=== PATIENT | male | born 1940 | race Caucasian/White ===

== ENCOUNTER 2018-09-10 06:45 | Day surgery (SDC) | payer MEDICARE, SELFPAY ==
[2018-09-10] VITALS (7 sets, daily range): BP systolic 95–120; BP diastolic 61–84; PULSE 60–84; RESP 14–16; TEMP 36.6–36.7; O2SAT 93–98; BMI 27.3
--- NOTE | 2018-09-10 07:00 | RAD_ITS ---
STUDY: X-RAY - LEFT FOOT CLINICAL: Male, 78 years old. Intraoperative injection at the first metatarsophalangeal joint. TECHNIQUE: 1 coned-down view(s) of the foot. COMPARISON: None. FINDINGS: Intraoperative fluoroscopic services provided for intra-articular injection at the first metatarsophalangeal joint. RAD/Fluoro Guided Needle Placement IMPRESSION: Intraoperative fluoroscopic services provided for intra-articular injection at the first metatarsal phalangeal joint. Electronically Signed: Daniel Elise MD at 9:49 EST Tel [phone], Service support ,
[2018-09-10] MEDS: Bupivacaine 0.5% PF 10 ML VIAL (08:12)
[2018-09-10] MEDS: Triamcinolone Acetonide 40 MG/ML Vial (08:12)
--- NOTE | 2018-09-10 08:23 | PCM.IMDPSTOP ---
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
--- NOTE | 2018-09-10 08:25 | DCINST_ITS ---
Discharge Activity: Return to Normal Activity Allergies/Adverse Reactions: Allergies morphine Allergy (Verified 09/05/18 15:24) Other CAUSES LOW BP IV CONTRAST DYE Allergy (Uncoded 09/05/18 15:24) Rash Medications to take at Discharge Aspirin E.C. [Ecotrin] 81 mg PO DAILY@0800 10/17/17 Atorvastatin Calcium [Lipitor] 40 mg PO QHS 10/17/17 Calcium Carbonate/Vitamin D3 [Calcium 250-Vit D3 125 Tablet] 1 each PO DAILY 10/17/17 Cholecalciferol (Vitamin D3) [Vitamin D3] 800 unit PO DAILY 10/17/17 Fenofibrate [Tricor] 216 mg PO DAILY 10/17/17 Fish Oil/Dha/Epa [Fish Oil 1,200 mg Fish Oil] 1 each PO BID 10/17/17 Metoprolol Succinate 25 mg PO BID 10/17/17 Multivitamin [Daily Multiple Vitamin] 1 each PO DAILY 10/17/17 Nitroglycerin [Nitrostat] 0.4 mg SUBLINGUAL Q5M PRN 10/17/17 Omeprazole 40 mg PO BID 10/17/17 Tamsulosin HCl [Flomax] 0.4 mg PO DAILY 10/17/17 Ubidecarenone/Vitamin E Mixed [Poz71-Wxe E 100 mg-10 Unit Sfg] 1 each PO DAILY 10/17/17 Psyllium Husk (with Sugar) [Metamucil Packet] 3.4 gm PO DAILY 09/05/18 Sildenafil Citrate [Viagra] 100 mg PO PRN PRN 09/05/18 Primary Care Physician: Michael Kelley MD [Primary Care Provider] - Test Results: Test results from this visit will be discussed in further detail at your follow- up appointment, if applicable.
--- NOTE | 2018-09-10 08:30 | OP.PCM_ITS ---
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 He has severe narrowing of left 1st mtp with lessn than 5 degrees of avaiable motion of left 1st mtp. He has pain with rom of left 1st mtpj. He presented to my office last week requesting an injection as he had this performed last year and this was found to be very successful. He is interested in another injection. I discussed risks of injection not limited to joint infection, tendon rupture, cartilage injury, ligament injury, bleeding, bruising, failure to resolve pain. patient informed that if injection fails to eliminate pain, surgical options, most notably fusion would be next option. patient consents to proceed with xray guided injection of left foot. patient was transferred to operating room and placed on operating room table in supine position. he was placed under mac anesthesia. the left foot was prepped and draped in the usual aseptic technique. timeout was performed making note of procedure and personal involved. using intra-op xray, the left 1st mtpj was identified. a sterile injection consisting of 0.5 cc of dexamethazone, 0.5 cc of kenalog and 0.5 cc of marcaine plain was injected to left foot. patient tolerated injection. a band aid was then applied. patient was transferred to pacu in stable condition.
== END 2018-09-10 09:18 | disposition home or self-care (01) ==
LOC: SDC 06:46 → AC 06:47
PROVIDERS: Family Provider Family Medicine; PCP Family Medicine; Referring Provider Podiatrist Foot & Ankle Surgery; Visit Provider Podiatrist Foot & Ankle Surgery
PROC: (CPT 20605; principal; 2018-09-10 08:20)
DX: M20.5X2 Other deformities of toe(s) (acquired), left foot (principal); M19.90 Unspecified osteoarthritis, unspecified site; I10 Essential (primary) hypertension; N40.0 Benign prostatic hyperplasia without lower urinary tract symptoms; M26.629 Arthralgia of temporomandibular joint, unspecified side; G44.209 Tension-type headache, unspecified, not intractable; E78.2 Mixed hyperlipidemia; K22.70 Barrett's esophagus without dysplasia; I25.119 Atherosclerotic heart disease of native coronary artery with unspecified angina pectoris; Z87.891 Personal history of nicotine dependence
CPT/HCPCS: 20604; 76000; 77002; J7120

== ENCOUNTER → 2018-11-07 09:44 | Outpatient (CLI) | payer MEDICARE, SELFPAY ==
[2018-09-10 07:11] VITALS: BMI 27.3
--- NOTE | 2018-11-07 10:45 | MRI_ITS ---
STUDY: MRI BRAIN WITHOUT CONTRAST REASON FOR EXAM: Male, 78 years old. Vertigo. Headache. History of renal carcinoma. Family history of glioblastoma. TECHNIQUE: Standardized multiplanar fat and water weighted pulse sequences were obtained. COMPARISON: None. FINDINGS: No restricted diffusion to suspect acute or subacute ischemic infarct. Normal size of the ventricles and extra-axial spaces for the patient's age. Subcortical white matter and posterior periatrial white matter T2 FLAIR hyperintensity foci in both cerebral hemispheres are chronic white matter ischemic changes. Normal bilateral basal ganglia. Normal thalami. There is no extra-axial fluid accumulation. Normal flow voids within the major intracranial circulation suggesting patency by spin echo criteria. Normal sella turcica, pituitary gland, infundibular stalk, optic chiasm and hypothalamus. Normal tectal plate and pineal gland. Normal midbrain, ruperto and medulla. Normal cerebellum. Normal basal cisterns. Normal bilateral temporal bones. Normal bilateral internal auditory canals. No demonstrated orbital abnormality, within the constraints of a routine brain study. Mucosal thickening and a markedly contracted right maxillary sinus due to chronic sinusitis. Normal calvarium and skull base. Normal visualized soft tissue structures. Normal visualized upper cervical spine. MRI/Brain without Contrast IMPRESSION: 1. No MRI evidence of acute or subacute ischemic infarct or intracranial mass. 2. Chronic white matter ischemic changes in both cerebral hemispheres. 3. Mucosal thickening in a contracted right maxillary sinus due to chronic sinusitis. Electronically Signed: Subhash Harmon MD at 8:49 EST , Service support ,
== END ==
PROVIDERS: Family Provider Family Medicine; PCP Family Medicine; Referring Provider Family Medicine; Visit Provider Family Medicine
DX: R42 Dizziness and giddiness (principal); R51 Headache; Z80.8 Family history of malignant neoplasm of other organs or systems; C64.9 Malignant neoplasm of unspecified kidney, except renal pelvis
CPT/HCPCS: 70551

== ENCOUNTER 2022-12-02 09:48 | Inpatient (IN) | payer MEDICARE, SELFPAY ==
[2022-12-02 09:50] VITALS: BP 118/81; PULSE 125; RESP 18; TEMP 36.1; O2SAT 98; BMI 24.4
--- NOTE | 2022-12-02 10:24 | EKG12_ITS ---
Test Reason : Blood Pressure : / mmHG Vent. Rate : 098 BPM Atrial Rate : 098 BPM P-R Int : 220 ms QRS Dur : 090 ms QT Int : 360 ms P-R-T Axes : 023 -12 002 degrees QTc Int : 459 ms Sinus rhythm with 1st degree A-V block Incomplete right bundle branch block Possible Lateral infarct , age undetermined Inferior infarct , age undetermined Abnormal ECG Confirmed by AILEEN ART, HENRRY ([id number]), development editor AYDEE MONTELONGO ([id number]) on 12/05/2022 9:08:54 AM Referred By: Confirmed By:HENRRY GALLAGHER MD
--- NOTE | 2022-12-02 10:25 | RAD_ITS ---
INDICATION: CAD EXAMINATION/TECHNIQUE: X-RAY - XR Chest 1 View COMPARISON: None. FINDINGS: LINES/DEVICES: None. LUNGS: Suboptimal inspiratory effort. No consolidation, edema or effusion. No pneumothorax. MEDIASTINUM AND CARDIOVASCULAR STRUCTURES: Cardiac silhouette not enlarged. Central airways and mediastinal contour are unremarkable. BONES AND SOFT TISSUES: Status post reverse arthroplasty left shoulder. RAD/Chest 1 View (Portable) IMPRESSION: Suboptimal inspiratory effort. Status post reverse arthroplasty left shoulder. Electronically Signed: Javed Salvador MD, CHACHA at 11:23 EST ,
--- NOTE | 2022-12-02 10:26 | EDS_ITS ---
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 He had his th round of radiation therapy on Sunday, 4 days ago. He is due for his last round of chemotherapy on Sunday. He sees Dr. Smith with the [facility], presents with generalized weakness, nausea and vomiting. He states he had a bad night last evening, his worst night with diffuse chest pain, and pain in his epigastrium. Over the last few days he has vomited 3 times without any blood whit in his emesis. He may have had looser stool. No fevers or chills. He is states that he is not a surgical candidate, hence he is going through the radiation therapy along with the chemotherapy. He denies any nausea currently. No chest pain. PFSH PFSH Home Medications aspirin 81 mg tablet,delayed release 81 mg PO DAILY@0800 10/17/17 [History Last Taken Unknown] atorvastatin 40 mg tablet 40 mg PO QHS 10/17/17 [History Last Taken Unknown] calcium carbonate 250 mg-vitamin D3 3.125 mcg (125 unit) tablet 1 ea PO DAILY 10/17/17 [History Last Taken Unknown] cholecalciferol (vitamin D3) 125 mcg (5,000 unit) capsule 800 unit PO DAILY 10/17/17 [History Last Taken Unknown] coenzyme Q10 100 mg-vitamin E 10 unit capsule 1 ea PO DAILY 10/17/17 [History Last Taken Unknown] fenofibrate nanocrystallized 145 mg tablet 216 mg PO DAILY 10/17/17 [History Last Taken Unknown] fish oil-dha-epa 1,200 mg-144 mg-216 mg capsule 1 ea PO BID 10/17/17 [History Last Taken Unknown] metoprolol succinate 25 mg tablet,extended release 24 hr 25 mg PO BID 10/17/17 [History Last Taken 09/10/18 05:45 25 MG] multivitamin (Daily Multiple tablet) 1 ea PO DAILY 10/17/17 [History Last Taken Unknown] nitroglycerin 0.4 mg sublingual tablet 0.4 mg sublingual Q5M PRN Chest Pain 10/17/17 [History Last Taken Unknown] omeprazole 40 mg capsule,delayed release 40 mg PO BID 10/17/17 [History Last Taken 09/10/18 05:45 40 MG] tamsulosin 0.4 mg capsule 0.4 mg PO DAILY 10/17/17 [History Last Taken Unknown] psyllium husk (with sugar) 3.4 gram oral powder packet (Metamucil (with sugar)) 3.4 g PO DAILY 09/05/18 [History Last Taken Unknown] sildenafil 100 mg tablet (Viagra) 100 mg PO PRN PRN ED 09/05/18 [History Last Taken Unknown] Allergy/AdvReac Type Severity Reaction Status Date / Time Iodinated Contrast Media Allergy Rash Verified 12/02/22 10:34 [contrast dye - iodinated] morphine Allergy Other Verified 12/02/22 09:54 Social History Smoking Status: Former smoker ROS ROS ED ROS Narrative Constitutional: No fever, no chills. Generalized weakness. HEENT: No sore throat. No neck pain. No loss of vision. No rhinorrhea. Cardiovascular: Positive chest pain-resolved. No palpitations. No pedal edema. Respiratory: No cough, no shortness of breath. Abdominal: Epigastric to diffuse abdominal pain. 3 episodes of nausea and vomiting, nonbloody, over the last few days. Genitourinary: No dysuria. No hematuria. Musculoskeletal: No myalgias. No arthralgias. Neurologic: No headaches. No dizziness. No lightheadedness. Skin: No rash. No change in color. Psychiatric: No depression. No anxiety. EXAM Physical Exam Narrative Exam Narrative: Afebrile. Vital signs noted. HEENT: Normocephalic. Atraumatic. PERRL, EOMI. Neck soft and supple. No point tenderness or step off. Cardiovascular: Tachycardia. No murmurs, rubs, or gallops appreciated. Respiratory: No tachypnea. Lungs clear to auscultation bilaterally. Gastrointestinal: Abdomen soft, minimal epigastric tenderness. With normoactive bowel sounds. No rebound or guarding. Neurological: Awake. Alert. Nonfocal, nonlateralizing. Skin: No rash. Normal color. No pallor. Musculoskeletal: No pedal edema. Full range of motion extremities. Const Vital Signs: 12/02/22 09:50 12/02/22 13:37 Temperature 97.0 F L 98 F Temperature Source Temporal Temporal Pulse Rate 125 H 109 H Respiratory Rate 18 20 H Blood Pressure 118/81 H 120/73 Blood Pressure Mean 93 88 Pulse Ox 98 99 Oxygen Delivery Method Room Air Room Air MDM MDM MDM Narrative Medical decision making narrative: Main concern is for dehydration. Patient will be bolused normal saline 1 L intravenously. He declines any antinausea medication currently. He will be given fentanyl for palliation. Comprehensive work-up was pursued. Patient's concern was that last night with his chest pain I thought I was having a heart attack. I will obtain an EKG and troponin to check out his cardiac status and see if he has had NSTEMI. Regarding his nausea and vomiting and abdominal pain, I do feel that it may be secondary to his esophageal carcinoma and recent radiation. Patient complains of large amount of phlegm being produced that he spits up. I reviewed the patient's laboratory work. He is neutropenic at 1.5 with a hemoglobin of 12.5 and hematocrit 36.9. Platelet count normal at 173. He is mildly dehydrated with a sodium of 132, potassium 3.2, BUN normal at 15 and creatinine 1.0 however. LFTs show alk phos slightly elevated at 42, high- sensitivity troponin is 15. This is a greater than 6-hour troponin so in regards to his chest pain I do not feel that he is having an acute coronary syndrome, non-STEMI. I interpreted his EKG as normal sinus rhythm at 98 bpm without ectopy or acute ST changes. No STEMI. No significant change from 2021 in regards to acute ST changes. Chest x-ray interpreted by myself shows no evidence of an acute pneumonia or pneumothorax. I reviewed the radiology report which confirms my interpretation. CT of the abdomen and pelvis without contrast because he has an allergy, shows no evidence of an obstruction in review of the radiology report, there is cholelithiasis. I do not feel that he has acute cholecystitis. I discussed patient with Dr. Smith who called in regarding the patient. If the patient were to be discharged, he wanted him on oral liquid oxycodone. However, family and patient are concerned because he has been unable to tolerate any p.o. fluids. He was given a p.o. challenge of his oral potassium. He vomited immediately according to the RN. Given his inability to take oral medications or oral fluids, I discussed the patient with Dr. Tomasz Joyce for assignment to observation on the medical surgical floor. Patient is in stable condition. Lab Data Attestation: I reviewed the patient's lab results. Labs: Laboratory Results - last 24 hr 12/02/22 12/02/22 12/02/22 10:09 10:09 12:03 WBC 1.5 L RBC 3.95 L Hgb 12.5 L Hct 36.9 L MCV 93.4 MCH 31.6 MCHC 33.9 RDW Std Deviation 52.7 H RDW Coeff of Terry 15.7 H Plt Count 173 MPV 10.5 Immature Gran % (Auto) 1.400 H Neut % (Auto) 70.2 H Lymph % (Auto) 10.8 L [place] % (Auto) 14.2 H Eos % (Auto) 2.0 Baso % (Auto) 1.4 H Absolute Neuts (auto) 1.0 L Absolute Lymphs (auto) 0.16 L Nucleated RBC % 0 Diff Path Review May foll Platelet Estimate ADEQUATE Anisocytosis 1+ Sodium 132 L Potassium 3.2 L Chloride 99 Carbon Dioxide 22.0 Anion Gap 11 BUN 15 Creatinine 1.01 Estim Creat Clear Calc 54.44 Est GFR (MDRD) Af Amer 90 Est GFR (MDRD) Non-Af 75 BUN/Creatinine Ratio 14.9 Glucose 120 H Calcium 8.8 Total Bilirubin 0.70 AST 25 ALT 24 Alkaline Phosphatase 42 L Troponin I High Sens 15 Total Protein 6.7 Albumin 3.3 Globulin 3.4 Albumin/Globulin Ratio 1.0 Lipase 101 Urine Color Yellow Urine Clarity Clear Urine pH 6.5 Ur Specific [place] 1.010 Urine Protein Negative Urine Glucose (UA) Normal Urine Ketones Negative Urine Occult Blood Negative Urine Nitrite Negative Urine Bilirubin Negative Urine Urobilinogen Normal Ur Leukocyte Esterase Negative Urine RBC 0 SEEN Urine WBC 0 SEEN Ur Squamous Epith Cells 0 SEEN Urine Bacteria 0 SEEN Urine Mucus 0 SEEN Radiography Diagnostic Testing: Clinical Impression(s) from Imaging Studies Chest X-Ray 12/02/22 10:25 IMPRESSION: Suboptimal inspiratory effort. Status post reverse arthroplasty left shoulder. Electronically Signed: Javed Salvador MD, CHACHA at 11:23 EST Reading Location ID and State: [facility] / [place] Tel , Service support , Abdomen/Pelvis CT 12/02/22 10:35 IMPRESSION: Cholelithiasis. Simple cyst lateral midpole right kidney 2.3 cm. Sigmoid diverticulosis. Moderate sized hiatal hernia. Enlarged prostate. Electronically Signed: Javed Salvador MD, CHACHA at 11:50 EST , Discharge Plan Dx/Rx/DC Orders Clinical Impression: Esophageal carcinoma, Hypokalemia, Intractable vomiting, Neutropenia Disposition Disposition: Acute Care [facility]
--- NOTE | 2022-12-02 10:35 | CT_ITS ---
INDICATION: Pain EXAMINATION: CT ABDOMEN AND PELVIS WITHOUT CONTRAST - CT Abdomen And Pelvis W/O Contrast Injection TECHNIQUE: Helically acquired images were obtained of the abdomen and pelvis without oral or IV contrast. A radiation dose optimization technique was used for this scan. IV Contrast dosage and agent: None. Oral contrast: None. COMPARISON: None. FINDINGS: LOWER CHEST: Lung bases are clear. No cardiomegaly or pericardial effusion. LIVER: Homogeneous. No focal mass. GALLBLADDER AND BILIARY TREE: Cholelithiasis. No gallbladder distension or wall edema. No intra- or extrahepatic biliary ductal dilation. PANCREAS: No focal cystic or solid mass. SPLEEN: Normal size without focal cystic or solid mass. ADRENAL GLANDS: No nodules. KIDNEYS AND URETERS: Normal renal size and position. No hydronephrosis. Simple cyst lateral midpole right kidney 2.3 cm. PERITONEUM: No ascites or free air. No other fluid collection. BOWEL: No evidence of acute appendicitis. Moderate sized hiatal hernia. Other etiology cannot be excluded. No focal inflammatory change.Moderate sigmoid diverticulosis. No evidence of diverticulitis. Remainder of colon normal. Small bowel normal. Stomach nondistended limiting evaluation. LYMPH NODES: No enlarged mesenteric or retroperitoneal lymph nodes. VESSELS: Aorta is non-dilated. URINARY BLADDER: Mildly distended. REPRODUCTIVE ORGANS: Enlarged prostate 6.1 cm transverse by 5.53 cm AP. ABDOMINAL WALL: No discrete abdominal or pelvic wall hernia. BONES: Moderate degenerative disc disease throughout lumbar spine. Moderate bilateral facet arthropathy L4-S1. CT/Abdomen/Pelvis without Cont IMPRESSION: Cholelithiasis. Simple cyst lateral midpole right kidney 2.3 cm. Sigmoid diverticulosis. Moderate sized hiatal hernia. Enlarged prostate. Electronically Signed: Javed Salvador MD, CHACHA at 11:50 EST Reading Location ID and State: [facility] / [place] Tel , Service support ,
[2022-12-02] MEDS: 0.9% Normal Saline 1,000 ML 1000 ML IV (10:37)
[2022-12-02 10:39] LABS: Absolute Lymphocyte Count 0.16 X10^3/uL (0.83-4.51); Basophil# 0.02 X10^3/uL; Basophil% 1.4 % (0-1); Eosinophil# 0.03 X10^3/uL; Hematocrit 36.9 % (40-54); Hemoglobin 12.5 g/dL (13.0-16.5); Lymphocyte # 0.16 X10^3/ul (0.83-4.51); Lymphocyte % 10.8 % (19-41); Mean Corp Hgb Conc 33.9 g/dL (32-36); Mean Corpuscular Hgb 31.6 pg (27.0-32.0); Mean Corpuscular Volume 93.4 fL (80-94); Mean Platelet Vol. 10.5 fl (6.2-12.0); Monocyte# 0.21 X10^3/uL; Monocyte% 14.2 % (0-10); NRBC Flagged by Analyzer 0 % (0-5); Neutrophil # 1.04 X10^3/uL (2.7-7.7); Neutrophil % 70.2 % (47-70); POSITIVE COUNT YES; POSITIVE DIFFERENTIAL YES; POSITIVE MORPHOLOGY YES; Platelet Count 173 K/mm3 (150-450); RBC Distribution Width CV 15.7 % (11.6-14.6); RBC Distribution Width SD 52.7 fl (35.1-43.9); Red Blood Count 3.95 M/mm3 (4.6-6.2)
[2022-12-02 10:43] LABS: Differential Indicated SCAN CRITERIA MET; White Blood Count 1.5 K/mm3 (4.4-11.0)
[2022-12-02 10:56] LABS: AST(SGOT) 25 U/L (15-37); Alanine Aminotransfer ALT/SGPT 24 U/L (16-61); Albumin, Serum 3.3 g/dL (3.2-5.0); Alkaline Phosphatase 42 U/L (45-117); Anion Gap 11 (5-15); BUN 15 mg/dL (7-18); BUN/Creat Ratio 14.9 RATIO (10-20); Calcium,Total 8.8 mg/dL (8.5-10.1); Chloride 99 mmol/L (98-107); Creatinine, Serum 1.01 mg/dL (0.70-1.30); EST Glomerular Filtration Rate 75 mL/min (>60); Est Glom Filt Rate - Afr Amer 90 mL/min (>60); Estimated Creatinine Clearance 54.44 ml/min; Globulin 3.4 g/dL (2.2-4.2); Glucose 120 mg/dL (74-106); Lipase 101 U/L (73-393); Potassium 3.2 mmol/L (3.5-5.1); Protein, Total 6.7 g/dL (6.4-8.2); Sodium Level 132 mmol/L (136-145); Troponin-I HS 15 pg/mL (3.0-78.0)
[2022-12-02 11:23] LABS: Anisocytosis 1+; Platelet Estimate ADEQUATE (ADEQ)
[2022-12-02 12:14] LABS: Bacteria 0 SEEN /hpf (None Seen); Mucous, Urine 0 SEEN /hpf (<or=2+); Red Blood Cells-Urine 0 SEEN /hpf (0-5); Squamous Epithelial Cells - UA 0 SEEN /hpf (0-5); White Blood Cells 0 SEEN /hpf (0-5)
[2022-12-02 12:15] LABS: Color, Urine Yellow (Yellow); Glucose, Dipstick Normal (Normal); Ketone-Dipstick Negative (Negative); Leukocyte Esterase-Dipstick Negative /ul (Negative); Nitrite-Dipstick Negative (Negative); Occult Blood-Urine Negative /ul (Negative); Protein-Dipstick Negative (Negative); Urine Bilirubin Dipstick Negative (Negative); Urine Clarity Clear (Clear); Urine Urobilinogen Normal (Normal); Urine pH 6.5 (5.0 - 8.0)
[2022-12-02] MEDS: Potassium Chloride Oral Soln 20 MEQ/15 ML UDC 40 MEQ PO (12:17)
[2022-12-02] MEDS: fentaNYL 100 MCG/2 ML Ampul 50 MCG IV (13:34)
[2022-12-02 13:37] VITALS: BP 120/73; PULSE 109; RESP 20; TEMP 36.6; O2SAT 99
--- NOTE | 2022-12-02 13:59 | HP.PCM.HOS_ITS ---
[facility] - General General Date of Service: 12/02/22 Chief Complaint: dysphagia. [facility] Narrative SKINNY VALENCIA, is a 82 M who presents with progressive dysphagia. 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 He has been undergoing radiation treatment and last radiation was on Sunday. Patient is just having trouble swallowing and is vomiting up medications. Has no appetite and does not eat food that he is comes up but is able to take some liquids but not all much of those come up as well. Does get some diffuse chest pain. No abdominal pain. Presented to the emergency room with these complaints and was found to have a potassium of 3.2 and ordered replacement. They tried giving him oral but he threw that up. The hospital service was contacted for admission for the patient's ongoing dysphagia. [facility] Medical History (Updated 12/02/22 @ 14:[address] Tomasz Joyce, ) Barretts esophagus BPH (benign prostatic hyperplasia) CAD (coronary artery disease) Erectile dysfunction Esophageal carcinoma Home Medications aspirin 81 mg tablet,delayed release 81 mg PO DAILY@0800 10/17/17 [History Last Taken Unknown] atorvastatin 40 mg tablet 40 mg PO QHS 10/17/17 [History Last Taken Unknown] calcium carbonate 250 mg-vitamin D3 3.125 mcg (125 unit) tablet 1 ea PO DAILY 10/17/17 [History Last Taken Unknown] cholecalciferol (vitamin D3) 125 mcg (5,000 unit) capsule 800 unit PO DAILY 10/17/17 [History Last Taken Unknown] coenzyme Q10 100 mg-vitamin E 10 unit capsule 1 ea PO DAILY 10/17/17 [History Last Taken Unknown] fenofibrate nanocrystallized 145 mg tablet 216 mg PO DAILY 10/17/17 [History Last Taken Unknown] fish oil-dha-epa 1,200 mg-144 mg-216 mg capsule 1 ea PO BID 10/17/17 [History Last Taken Unknown] metoprolol succinate 25 mg tablet,extended release 24 hr 25 mg PO BID 10/17/17 [History Last Taken 09/10/18 05:45 25 MG] multivitamin (Daily Multiple tablet) 1 ea PO DAILY 10/17/17 [History Last Taken Unknown] nitroglycerin 0.4 mg sublingual tablet 0.4 mg sublingual Q5M PRN Chest Pain 10/17/17 [History Last Taken Unknown] omeprazole 40 mg capsule,delayed release 40 mg PO BID 10/17/17 [History Last Taken 09/10/18 05:45 40 MG] tamsulosin 0.4 mg capsule 0.4 mg PO DAILY 10/17/17 [History Last Taken Unknown] psyllium husk (with sugar) 3.4 gram oral powder packet (Metamucil (with sugar)) 3.4 g PO DAILY 09/05/18 [History Last Taken Unknown] sildenafil 100 mg tablet (Viagra) 100 mg PO PRN PRN ED 09/05/18 [History Last Taken Unknown] Allergy/AdvReac Type Severity Reaction Status Date / Time Iodinated Contrast Media Allergy Rash Verified 12/02/22 10:34 [contrast dye - iodinated] morphine Allergy Other Verified 12/02/22 09:54 Family History (Updated 12/02/22 @ 14:[address] Tomasz Joyce DO) Other Cancer Social History (Updated 12/02/22 @ 14:[address] Tomasz Joyce DO) Smoking Status: Never smoker ROS ROS Narrative Has been losing weight has not been eating much. All review of systems were negative except as mentioned above in the history of present illness and the other review of systems. Vital Signs Vital Signs Vital Signs: 12/02/22 09:50 12/02/22 13:37 Temperature 36.1 C L 36.6 C Temperature Source Temporal Temporal Pulse Rate 125 H 109 H Respiratory Rate 18 20 H Blood Pressure 118/81 H 120/73 Blood Pressure Mean 93 88 Pulse Ox 98 99 Oxygen Delivery Method Room Air Room Air Weight Weight: 75.115 kg Body Mass Index (BMI) 24.4 Physical Exam Const alert and no apparent distress HEENT normocephalic and hearing grossly normal bilaterally Neck no lymphadenopathy Resp normal respiratory effort, no retractions, no use of accessory muscles and clear to auscultation bilaterally Cardio regular rate, regular rhythm, S1 normal heart sound and S2 normal heart sound GI normal to inspection, nondistended, normoactive bowel sounds, soft to palpation, non-tender and non-distended Extremity normal to inspection Skin Skin Narrative: No rashes. Patient has a pinpoint tattoo for radiation on the lower sternum/xiphoid process Neuro oriented x3 and moves all extremities Psych affect normal Results Lab / Micro Data Attestation: I reviewed the patient's lab results. Result Diagrams: 12/02/22 10:09 12/02/22 10:09 Labs: Laboratory Results - last 24 hr 12/02/22 10:09: WBC 1.5 L, RBC 3.95 L, Hgb 12.5 L, Hct 36.9 L, MCV 93.4, MCH 31.6, MCHC 33.9, RDW Std Deviation 52.7 H, RDW Coeff of Terry 15.7 H, Plt Count 173, MPV 10.5, Immature Gran % (Auto) 1.400 H, Neut % (Auto) 70.2 H, Lymph % (Auto) 10.8 L, [place] % (Auto) 14.2 H, Eos % (Auto) 2.0, Baso % (Auto) 1.4 H, Absolute Neuts (auto) 1.0 L, Absolute Lymphs (auto) 0.16 L, Nucleated RBC % 0, Diff Path Review February, Platelet Estimate ADEQUATE, Anisocytosis 1+ 12/02/22 10:09: Sodium 132 L, Potassium 3.2 L, Chloride 99, Carbon Dioxide 22.0, Anion Gap 11, BUN 15, Creatinine 1.01, Estim Creat Clear Calc 54.44, Est GFR (MDRD) Af Amer 90, Est GFR (MDRD) Non-Af 75, BUN/Creatinine Ratio 14.9, Glucose 120 H, Calcium 8.8, Total Bilirubin 0.70, AST 25, ALT 24, Alkaline Phosphatase 42 L, Troponin I High Sens 15, Total Protein 6.7, Albumin 3.3, Globulin 3.4, Albumin/Globulin Ratio 1.0, Lipase 101 12/02/22 12:03: Urine Color Yellow, Urine Clarity Clear, Urine pH 6.5, Ur Specific [place] 1.010, Urine Protein Negative, Urine Glucose (UA) Normal, Urine Ketones Negative, Urine Occult Blood Negative, Urine Nitrite Negative, Urine Bilirubin Negative, Urine Urobilinogen Normal, Ur Leukocyte Esterase Negative, Urine RBC 0 SEEN, Urine WBC 0 SEEN, Ur Squamous Epith Cells 0 SEEN, Urine Bacteria 0 SEEN, Urine Mucus 0 SEEN Radiology Impression Chest X-Ray 12/02/22 10:25 IMPRESSION: Suboptimal inspiratory effort. Status post reverse arthroplasty left shoulder. Electronically Signed: Javed Salvador MD, CHACHA at 11:23 EST , Abdomen/Pelvis CT 12/02/22 10:35 IMPRESSION: Cholelithiasis. Simple cyst lateral midpole right kidney 2.3 cm. Sigmoid diverticulosis. Moderate sized hiatal hernia. Enlarged prostate. Electronically Signed: Javed Salvador MD, CHACHA at 11:50 EST , Assessment & Plan Assessment/Plan (1) Dysphagia: PLAN: I suspect due to the patient's history of radiation treatment for his esophageal cancer. Cannot rule out the possibility of esophageal webs or strictures. Discussed with Dr. Rangel, gastroenterology, he will see the patient in consultation. N.p.o. Viscous lidocaine IV pantoprazole Pain control and antiemetics (2) Hypokalemia: PLAN: Replaced in the ED Monitor and check magnesium (3) Neutropenia: PLAN: Monitor ANC 1000 May consider treatment if continues to drop. PLAN: Plan Chronic conditions * CAD: Status post history of remote stents in 2004. Continue with metoprolol as he is able * BPH: Hold tamsulosin * Esophageal cancer: Adenocarcinoma. Follow-up with oncology as outpatient VTE prophylaxis: SCDs for now anticipation of endoscopy in the near future. Discussed with the patient's son and spouse in the emergency room. Charges/Coding Visit Charges Inpatient E&M: 78073 Init Hosp L3
[2022-12-02 14:50] VITALS: BP 140/68; PULSE 90; RESP 18; TEMP 36.6; O2SAT 95
[2022-12-02 15:21] VITALS: BMI 24.5
[2022-12-02 15:29] VITALS: BP 121/74; PULSE 106; RESP 20; TEMP 36.8; O2SAT 100
[2022-12-02] MEDS: HYDROmorphone Inj 0.2 MG/ML SYRINGE IV ×2 (15:51→23:03)
[2022-12-02] MEDS: Potassium Chloride 40 MEQ in 0.9% Normal Saline 1,000 ML 150 MEQ IV (16:04)
[2022-12-02] MEDS: Ketorolac 15 MG/ML Vial IV (19:56)
[2022-12-02] MEDS: Mineral Oil/Petrolatum Cr 1.75oz Bottle 1 APPLIC TOPICAL (19:58)
[2022-12-02 20:33] VITALS: BP 101/74; PULSE 104; RESP 18; TEMP 37.4; O2SAT 98
[2022-12-02 20:50] VITALS: PULSE 104
[2022-12-02] MEDS: Metoprolol Tartrate 25 MG Tablet PO (20:50)
[2022-12-02] MEDS: MELATONIN 3 MG TABLET PO (22:58)
[2022-12-02] MEDS: 0.9% Normal Saline 1,000 ML 125 ML IV (22:59)
[2022-12-03] MEDS: HYDROmorphone Inj 0.2 MG/ML SYRINGE IV ×3 (03:52→20:56)
[2022-12-03 03:55] VITALS: BP 110/70; PULSE 75; RESP 18; TEMP 37.4; O2SAT 98
[2022-12-03] MEDS: 0.9% Normal Saline 1,000 ML 125 ML IV ×3 (04:49→20:57)
[2022-12-03 06:26] LABS: Anion Gap 7 (5-15); BUN 16 mg/dL (7-18); Calcium,Total 7.8 mg/dL (8.5-10.1); Chloride 107 mmol/L (98-107); EST Glomerular Filtration Rate 97 mL/min (>60); Est Glom Filt Rate - Afr Amer 118 mL/min (>60); Estimated Creatinine Clearance 68.74 ml/min; Glucose 85 mg/dL (74-106); Potassium 4.1 mmol/L (3.5-5.1); Sodium Level 135 mmol/L (136-145)
--- NOTE | 2022-12-03 07:19 | PN.HOSP_ITS ---
Reason for Visit Reason for Visit: Diagnoses Neutropenia, unspecified (12/02/22) Hypokalemia (12/02/22) Dysphagia, unspecified (12/02/22) Subjective Subjective Still with trouble swallowing. Objective Data Objective Data Vital Signs: Vital Signs Temp Pulse Resp BP Pulse Ox O2 Del Method 37.4 C H 75 18 110/70 98 Room Air 12/03/22 03:55 12/03/22 03:55 12/03/22 03:55 12/03/22 03:55 12/03/22 03:55 12/03/22 03:56 Oxygen Delivery Method Room Air Weight: 75.523 kg Body Mass Index (BMI) 24.5 Intake & Output: Intake and Output for Last 24 Hours 12/01/22 12/02/22 12/03/22 23:59 23:59 23:59 Intake Total 2155 / 2155 729.17 / 729.17 Output Total 200 / 200 Balance 2155 / 2155 529.17 / 529.17 Lab / Micro Data Result Diagrams: 12/03/22 04:49 12/03/22 04:49 Labs: Laboratory Results - last 24 hr 12/02/22 10:09: WBC 1.5 L, RBC 3.95 L, Hgb 12.5 L, Hct 36.9 L, MCV 93.4, MCH 31.6, MCHC 33.9, RDW Std Deviation 52.7 H, RDW Coeff of Terry 15.7 H, Plt Count 173, MPV 10.5, Immature Gran % (Auto) 1.400 H, Neut % (Auto) 70.2 H, Lymph % (Auto) 10.8 L, [place] % (Auto) 14.2 H, Eos % (Auto) 2.0, Baso % (Auto) 1.4 H, Absolute Neuts (auto) 1.0 L, Absolute Lymphs (auto) 0.16 L, Nucleated RBC % 0, Diff Path Review February, Platelet Estimate ADEQUATE, Anisocytosis 1+ 12/02/22 10:09: Sodium 132 L, Potassium 3.2 L, Chloride 99, Carbon Dioxide 22.0, Anion Gap 11, BUN 15, Creatinine 1.01, Estim Creat Clear Calc 54.44, Est GFR (MDRD) Af Amer 90, Est GFR (MDRD) Non-Af 75, BUN/Creatinine Ratio 14.9, Glucose 120 H, Calcium 8.8, Total Bilirubin 0.70, AST 25, ALT 24, Alkaline Phosphatase 42 L, Troponin I High Sens 15, Total Protein 6.7, Albumin 3.3, Globulin 3.4, Albumin/Globulin Ratio 1.0, Lipase 101 12/02/22 12:03: Urine Color Yellow, Urine Clarity Clear, Urine pH 6.5, Ur Specific [place] 1.010, Urine Protein Negative, Urine Glucose (UA) Normal, Urine Ketones Negative, Urine Occult Blood Negative, Urine Nitrite Negative, Urine Bilirubin Negative, Urine Urobilinogen Normal, Ur Leukocyte Esterase Negative, Urine RBC 0 SEEN, Urine WBC 0 SEEN, Ur Squamous Epith Cells 0 SEEN, Urine Bacteria 0 SEEN, Urine Mucus 0 SEEN 12/03/22 04:49: Sodium 135 L, Potassium 4.1, Chloride 107, Carbon Dioxide 21.0, Anion Gap 7, BUN 16, Creatinine 0.80, Estim Creat Clear Calc 68.74, Est GFR (MDRD) Af Amer 118, Est GFR (MDRD) Non-Af 97, BUN/Creatinine Ratio 20.0, Glucose 85, Calcium 7.8 L, Magnesium 2.0 Radiography Diagnostic Testing: Radiology Impression Chest X-Ray 12/02/22 10:25 IMPRESSION: Suboptimal inspiratory effort. Status post reverse arthroplasty left shoulder. Electronically Signed: Javed Salvador MD, JD at 11:23 EST , Abdomen/Pelvis CT 12/02/22 10:35 IMPRESSION: Cholelithiasis. Simple cyst lateral midpole right kidney 2.3 cm. Sigmoid diverticulosis. Moderate sized hiatal hernia. Enlarged prostate. Electronically Signed: Javed Salvador MD, JD at 11:50 EST , Physical Exam Const alert and no apparent distress HEENT head/scalp atraumatic and moist oral mucous membranes Resp normal respiratory effort, no retractions, no use of accessory muscles and clear to auscultation bilaterally Cardio regular rate, regular rhythm, S1 normal heart sound and S2 normal heart sound GI normal to inspection, nondistended, normoactive bowel sounds and soft to palpation Assessment & Plan Assessment/Plan (1) Dysphagia: PLAN: 2/2 radiation esophagitis I suspect due to the patient's history of radiation treatment for his esophageal cancer. Cannot rule out the possibility of esophageal webs or strictures. Viscous lidocaine and Maalox IV pantoprazole Pain control and antiemetics CARLINE Neal Friend: Advance diet No plans for endoscopy at this time. Lidocaine and maalox. (2) Hypokalemia: PLAN: Replaced in the ED Monitor and check magnesium (3) Neutropenia: PLAN: ongoing, but stable. Monitor ANC 1000 May consider treatment if continues to drop. Oncology on consult. PLAN: Plan Chronic conditions * CAD: Status post history of remote stents in 2004. Continue with metoprolol as he is able * BPH: Hold tamsulosin * Esophageal cancer: Adenocarcinoma. Follow-up with oncology as outpatient VTE prophylaxis: SCDs for now anticipation of endoscopy in the near future. Charges/Coding Visit Charges Inpatient E&M: 33727 Subs Hosp L2
--- NOTE | 2022-12-03 08:16 | ONC.CONSULT ---
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 He received 4 doses of concurrent chemotherapy on a weekly basis. Fifth dose omitted secondary to low counts. -Now admitted for significant odynophagia, dysphagia, inability to maintain nutrition and nausea. 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 -Borderline neutropenia. -Hypokalemia. Resolved after IV potassium administration. -Normal magnesium. Plan: -Continue IV hydration. -Agree with GI consultation. No clear indication for repeat EGD at this time. -Continue IV Dilaudid as needed. -Continue PPI. -Discussed with Dr. Rangel--likely will recommend topical anesthetic with Xylocaine, and Maalox. -Recommend discontinue prochlorperazine. -Continue Zofran 4 mg IV increased to 6 hours as needed. -Recheck CBC today. HPI Consult Data Date of Service:: 12/03/22 PCP / Referring Provider: Dr. Michael Kelley MD Attending: Dr. 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 ? HPI:?The patient is an 82-year-old male with a past medical history of CAD?(PCI with 2 stents 2004--low dose ASA), hypertension, hyperlipidemia, BPV, renal cell carcinoma?(incidental finding when had CT A/P at [facility] as part of surveillance for Thompson's--exophytic and resected?2008), BPH, Thompson's esophagus?and previous left total knee replacement?and left shoulder replacement. ? Was undergoing routine surveillance for Thompson's. GERD since his 20s. Had been on 40 mg omeprazole BID x10 years or so. Patient underwent a surveillance EGD on 09/04/2022 where he was found to have segmental moderate mucosal changes characterized by discoloration erythema, friability with contact bleeding along with nodularity scarring sloughing and increased vascular pattern and ulceration in the lower third of the esophagus between 29 and 34 cm. ?Biopsies were obtained with cold forceps for histology. ?There was a single mucosal nodule in the lower third of the esophagus at 34 cm from the incisors. ?Biopsy was obtained with cold forceps for histology. ?A large hiatal hernia was observed. ?There was diffuse moderately erythematous mucosa without bleeding observed in the entire examined stomach. ?Biopsies were taken with cold forceps for Helicobacter pylori testing. ?The duodenal bulb, first portion of the duodenum and second portion of the duodenum were normal. Pathology: A. Stomach, biopsy: - ??Chronic active gastritis with erosions. - ??No morphologic evidence of Helicobacter pylori organisms. - ??See comment. ? B. Esophagus at 29-34 cm, biopsies: - ??Poorly-differentiated adenocarcinoma with signet ring cell features undermining squamous esophageal mucosa. - ??See comment.? ? C. Esophagus at 34 cm, nodule, biopsy: - ??Invasive poorly-differentiated adenocarcinoma with signet ring cell features. ? CT of the chest, abdomen and pelvis on 09/14/2022. ?He was observed to have circumferential thickening of the wall the distal esophagus along with a moderate hiatal hernia. ?No suspicious pulmonary nodules or thoracic lymphadenopathy was observed. ?On the abdominal pelvic scans, there were no masses or lymphadenopathy. ?The liver was noted to be unremarkable. ?There was no splenomegaly. ?No lymphadenopathy was observed. PET 09/21/2022: RESULTS: Topogram review: Unremarkable, no acute findings. No retained foreign body. Head and Neck: ?No evidence of focal uptake to suggest FDG avid neoplastic process. Fluid collection in the mucosal thickening in the maxillary, ethmoid sinuses and nasal cavity with minimal FDG uptake, likely chronic sinusitis and rhinitis. Chest: ?Mucosal thickening and increased FDG uptake in the distal esophagus and GE junction with max SUV 4.7, likely representing known neoplasm. Calcified granuloma in the right lung, mediastinal and right hilar region. Hiatal hernia. Tiny subcarinal lymph nodes with minimal FDG uptake, probably reactive in nature. Abdomen and Pelvis: ?There are 2.1 x 0.9 cm right common iliac lymph node with max SUV 4.1, which is probably reactive in nature but not excluding metastases. Follow-up is recommended. Right kidney cyst. Calcified nodule in the left kidney without significant FDG uptake, probably sequela from previous trauma. Colonic diverticulosis. Extremities/Skeleton: ?No evidence of focal uptake to suggest FDG avid neoplastic process. Degenerative arthritic change. ? Received concurrent paclitaxel/carboplatin on weekly schedule with RT. Completed radiation last Sunday. Chemotherapy held last Sunday. Beginning last Sunday, he started having difficulty with swallowing. He was developing dry heaves and was having a progressive harder time getting liquid nutrition in. He was started on oral potassium as an outpatient and that exacerbated the heaving. Presented to the ER yesterday with these complaints. He received hydration in the ER. He was given a dose of p.o. potassium and promptly regurgitated that. He was then admitted for IV fluids, pain control with IV Dilaudid on an as-needed basis. It is helping. He has not had any further dry heaving. Still has occasional nausea. No mouth sores or oral pain. Initial neutrophil count 1000. No fevers since admission. Advanced Directives Power of Call Center Associate: Yes Living Will: Yes [facility] Medical History (Updated 12/02/22 @ 14:[address] Tomasz Joyce, DO) Barretts esophagus BPH (benign prostatic hyperplasia) CAD (coronary artery disease) Erectile dysfunction Esophageal carcinoma Home Medications aspirin 81 mg tablet,delayed release 81 mg PO DAILY HEART HEALTH 10/17/17 [History Last Taken 12/01/22] atorvastatin 40 mg tablet 40 mg PO QHS CHOLESTEROL 10/17/17 [History Last Taken 12/01/22] nitroglycerin 0.4 mg sublingual tablet 0.4 mg sublingual Q5M PRN Chest Pain 10/17/17 [History Last Taken Unknown] tamsulosin 0.4 mg capsule 0.4 mg PO QHS PROSTATE 10/17/17 [History Last Taken 12/01/22] psyllium husk (with sugar) 3.4 gram oral powder packet (Metamucil (with sugar)) 3.4 g PO DAILY CONSTIPATION 09/05/18 [History Last Taken 12/01/22] diphenhydramine 25 mg-acetaminophen 500 mg tablet (Tylenol PM Extra Strength) 3 tab PO QHS SLEEP 12/02/22 [History Last Taken 12/01/22] fenofibrate 54 mg tablet 216 mg PO DAILY CHOLESTEROL 12/02/22 [History Last Taken 12/01/22] metoprolol tartrate 50 mg tablet 25 mg PO BID BLOOD PRESSURE 12/02/22 [History Last Taken 12/01/22] mineral oil-hydrophil petrolat topical ointment (Aquaphor topical ointment) 1 applic topical TID skin 12/02/22 [History Last Taken Unknown] omeprazole 40 mg capsule,delayed release 40 mg PO BID ACID REFLUX 12/02/22 [History Last Taken 12/01/22] potassium chloride 20 mEq oral packet 20 meq PO DAILY SUPPLEMENT 12/02/22 [History Last Taken 12/01/22] promethazine 25 mg tablet 25 mg PO Q6H PRN NAUSEA/VOMITING 12/02/22 [History Last Taken 12/01/22] sucralfate 1 gram tablet 1 g PO 4X/DAY ULCER PREVENTION 12/02/22 [History Last Taken 12/01/22] Allergy/AdvReac Type Severity Reaction Status Date / Time Iodinated Contrast Media Allergy Rash Verified 12/02/22 10:34 [contrast dye - iodinated] morphine Allergy Other Verified 12/02/22 09:54 Family History (Updated 12/02/22 @ 14:[address] Tomasz Joyce DO) Other Cancer Social History (Updated 12/02/22 @ 14:[address] Tomasz Joyce DO) Smoking Status: Never smoker Physical Exam Const oriented x3 General Appearance: comfortable Eyes no scleral icterus Neck no lymphadenopathy Lymph Lymphatic: no lymphadenopathy noted Resp normal respiratory effort Cardio regular rhythm GI GI Narrative: The abdomen is nondistended. It is soft and nontender throughout. Extremity no pedal edema Vital Signs Temperature 99.4 F H 12/03/22 03:55 Temperature Source Oral 12/03/22 03:55 Pulse Rate 75 12/03/22 03:55 Respiratory Rate 18 12/03/22 03:55 Respiratory Effort Non-Labored 12/02/22 22:00 Respiratory Depth Normal 12/02/22 22:00 Respiratory Pattern Normal 12/02/22 22:00 Blood Pressure 110/70 12/03/22 03:55 Blood Pressure Mean 83 12/03/22 03:55 Blood Pressure Source Monitor 12/02/22 20:33 Blood Pressure Position Semi-Fowlers 12/02/22 15:29 Blood Pressure Location Right Arm 12/02/22 15:29 Pulse Ox 98 12/03/22 03:55 Oxygen Delivery Method Room Air 12/03/22 03:56 Laboratory Results - last 24 hr 12/02/22 10:09: WBC 1.5 L, RBC 3.95 L, Hgb 12.5 L, Hct 36.9 L, MCV 93.4, MCH 31.6, MCHC 33.9, RDW Std Deviation 52.7 H, RDW Coeff of Terry 15.7 H, Plt Count 173, MPV 10.5, Immature Gran % (Auto) 1.400 H, Neut % (Auto) 70.2 H, Lymph % (Auto) 10.8 L, [place] % (Auto) 14.2 H, Eos % (Auto) 2.0, Baso % (Auto) 1.4 H, Absolute Neuts (auto) 1.0 L, Absolute Lymphs (auto) 0.16 L, Nucleated RBC % 0, Diff Path Review February, Platelet Estimate ADEQUATE, Anisocytosis 1+ 12/02/22 10:09: Sodium 132 L, Potassium 3.2 L, Chloride 99, Carbon Dioxide 22.0, Anion Gap 11, BUN 15, Creatinine 1.01, Estim Creat Clear Calc 54.44, Est GFR (MDRD) Af Amer 90, Est GFR (MDRD) Non-Af 75, BUN/Creatinine Ratio 14.9, Glucose 120 H, Calcium 8.8, Total Bilirubin 0.70, AST 25, ALT 24, Alkaline Phosphatase 42 L, Troponin I High Sens 15, Total Protein 6.7, Albumin 3.3, Globulin 3.4, Albumin/Globulin Ratio 1.0, Lipase 101 12/02/22 12:03: Urine Color Yellow, Urine Clarity Clear, Urine pH 6.5, Ur Specific [place] 1.010, Urine Protein Negative, Urine Glucose (UA) Normal, Urine Ketones Negative, Urine Occult Blood Negative, Urine Nitrite Negative, Urine Bilirubin Negative, Urine Urobilinogen Normal, Ur Leukocyte Esterase Negative, Urine RBC 0 SEEN, Urine WBC 0 SEEN, Ur Squamous Epith Cells 0 SEEN, Urine Bacteria 0 SEEN, Urine Mucus 0 SEEN 12/03/22 04:49: Sodium 135 L, Potassium 4.1, Chloride 107, Carbon Dioxide 21.0, Anion Gap 7, BUN 16, Creatinine 0.80, Estim Creat Clear Calc 68.74, Est GFR (MDRD) Af Amer 118, Est GFR (MDRD) Non-Af 97, BUN/Creatinine Ratio 20.0, Glucose 85, Calcium 7.8 L, Magnesium 2.0 Diagnostic Data Chest X-Ray 12/02/22 10:25 IMPRESSION: Suboptimal inspiratory effort. Status post reverse arthroplasty left shoulder. Electronically Signed: Javed Salvador MD, CHACHA at 11:23 EST , Abdomen/Pelvis CT 12/02/22 10:35 IMPRESSION: Cholelithiasis. Simple cyst lateral midpole right kidney 2.3 cm. Sigmoid diverticulosis. Moderate sized hiatal hernia. Enlarged prostate. Electronically Signed: Javed Salvador MD, CHACHA at 11:50 EST ,
[2022-12-03 10:48] LABS: Absolute Lymphocyte Count 0.23 X10^3/uL (0.83-4.51); Absolute Neutrophil Count 1.4 X10^3/uL (2.0-7.7); Basophil# 0.02 X10^3/uL; Eosinophil# 0.04 X10^3/uL; Hematocrit 30.4 % (40-54); Hemoglobin 10.2 g/dL (13.0-16.5); Lymphocyte # 0.23 X10^3/ul (0.83-4.51); Lymphocyte % 11.4 % (19-41); Mean Corp Hgb Conc 33.6 g/dL (32-36); Mean Corpuscular Hgb 32.3 pg (27.0-32.0); Mean Corpuscular Volume 96.2 fL (80-94); Mean Platelet Vol. 10.6 fl (6.2-12.0); Monocyte% 14.9 % (0-10); NRBC Flagged by Analyzer 0 % (0-5); Neutrophil % 69.7 % (47-70); POSITIVE DIFFERENTIAL YES; POSITIVE MORPHOLOGY YES; Platelet Count 150 K/mm3 (150-450); RBC Distribution Width CV 15.9 % (11.6-14.6); RBC Distribution Width SD 55.3 fl (35.1-43.9); Red Blood Count 3.16 M/mm3 (4.6-6.2)
[2022-12-03 10:59] LABS: Differential Indicated SCAN CRITERIA MET
--- NOTE | 2022-12-03 11:35 | EX.PCM.CON.G ---
HPI Consult Data Date of Consult: 12/03/22 HPI Narrative Reason for Consultation: Dysphagia and odynophagia HPI Narrative: SKINNY VALENCIA, is a 82 M who presents with dysphagia accompanied with nausea and multiple episodes of vomiting. 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 His last upper endoscopy was 2 years ago and he was told that he had a normal esophagus. However unfortunately he had a recent diagnosis of esophageal cancer. He was deemed not a surgical candidate due to local lymph node invasion. He had his 28th round of radiation therapy on Sunday, 4 days ago.? He is due for his last round of chemotherapy on Sunday.? He sees Dr. Smith with the [facility], presents with generalized weakness, nausea and vomiting.? He states he had a bad night last evening, his worst night with diffuse chest pain, and pain in his epigastrium.? Over the last few days he has vomited 3 times without any blood whit in his emesis.? He may have had looser stool.? No fevers or chills.? He is states that he is not a surgical candidate, hence he is going through the radiation therapy along with the chemotherapy.? He denies any nausea currently.? No chest pain. In the ED had a CT scan of the chest abdomen pelvis did not show any signs of lymphadenopathy, perforation, scarring, effusions or masses. I was asked to see him for nausea, vomiting and esophageal dysphagia. He had a mild decrease in hemoglobin with increased BUN to creatinine ratio consistent with dehydration. [facility] Medical History (Updated 12/02/22 @ 14:[address] Tomasz Joyce, DO) Barretts esophagus BPH (benign prostatic hyperplasia) CAD (coronary artery disease) Erectile dysfunction Esophageal carcinoma Home Medications aspirin 81 mg tablet,delayed release 81 mg PO DAILY HEART HEALTH 10/17/17 [History Last Taken 12/01/22] atorvastatin 40 mg tablet 40 mg PO QHS CHOLESTEROL 10/17/17 [History Last Taken 12/01/22] nitroglycerin 0.4 mg sublingual tablet 0.4 mg sublingual Q5M PRN Chest Pain 10/17/17 [History Last Taken Unknown] tamsulosin 0.4 mg capsule 0.4 mg PO QHS PROSTATE 10/17/17 [History Last Taken 12/01/22] psyllium husk (with sugar) 3.4 gram oral powder packet (Metamucil (with sugar)) 3.4 g PO DAILY CONSTIPATION 09/05/18 [History Last Taken 12/01/22] diphenhydramine 25 mg-acetaminophen 500 mg tablet (Tylenol PM Extra Strength) 3 tab PO QHS SLEEP 12/02/22 [History Last Taken 12/01/22] fenofibrate 54 mg tablet 216 mg PO DAILY CHOLESTEROL 12/02/22 [History Last Taken 12/01/22] metoprolol tartrate 50 mg tablet 25 mg PO BID BLOOD PRESSURE 12/02/22 [History Last Taken 12/01/22] mineral oil-hydrophil petrolat topical ointment (Aquaphor topical ointment) 1 applic topical TID skin 12/02/22 [History Last Taken Unknown] omeprazole 40 mg capsule,delayed release 40 mg PO BID ACID REFLUX 12/02/22 [History Last Taken 12/01/22] potassium chloride 20 mEq oral packet 20 meq PO DAILY SUPPLEMENT 12/02/22 [History Last Taken 12/01/22] promethazine 25 mg tablet 25 mg PO Q6H PRN NAUSEA/VOMITING 12/02/22 [History Last Taken 12/01/22] sucralfate 1 gram tablet 1 g PO 4X/DAY ULCER PREVENTION 12/02/22 [History Last Taken 12/01/22] Allergy/AdvReac Type Severity Reaction Status Date / Time Iodinated Contrast Media Allergy Rash Verified 12/02/22 10:34 [contrast dye - iodinated] morphine Allergy Other Verified 12/02/22 09:54 Family History (Updated 12/02/22 @ 14:[address] Tomasz Joyce DO) Other Cancer Social History (Updated 12/02/22 @ 14:[address] Tomasz Joyce DO) Smoking Status: Never smoker ROS Review of Systems ROS Unobtainable: other Constitutional Constitutional: Denies fatigue, fever(s), poor appetite, weight gain or weight loss ENT HEENT: Denies mouth lesions Cardiovascular Cardiovascular: Denies abdominal bloating, abdominal edema or abdominal pain Respiratory/Chest Respiratory/Chest: Denies change in mental status, change in phlegm color, chest congestion or chest tightness Gastrointestinal Gastrointestinal: Denies belching, bloating, change in bowel habits, change in stool character, chewing difficulty, coffee ground emesis, constipation, cramping, diarrhea, dyspepsia, dysphagia, early satiety, excessive flatus, fecal incontinence, heartburn, hematemesis, hematochezia, hemorrhoids, loose stools, melena, nausea, odynophagia, rectal bleeding, tenesmus, vomiting or weight changes Genitourinary Genitourinary: Denies abdominal discomfort, burning urination or itching Musculoskeletal Musculoskeletal: Reports as per HPI; Denies muscle weakness or myalgias Integumentary Integumentary: Denies jaundice Neurologic Neurologic: Denies lack of coordination or weakness Psychiatric Psychiatric: Denies confusion, depression, memory loss, mood swings, paranoia or suicidal ideation Endocrine Endocrinology: Denies systems reviewed and no addt'l complaints, except as documented Hematologic/Lymphatic Hematologic/Lymphatic: Denies anemia, easy bleeding, easy bruising or lymphadenopathy Allergic/Immunologic Allergic/Immunologic: Denies systems reviewed and no addt'l complaints, except as documented Physical Exam Const oriented x3 General Appearance: comfortable Eyes no scleral icterus Neck no lymphadenopathy Lymph Lymphatic: no lymphadenopathy noted Resp normal respiratory effort Cardio regular rhythm GI GI Narrative: The abdomen is nondistended. It is soft and nontender throughout. Extremity no pedal edema Medical Records Data Medical Nutrition Assessment Dietitian: Malnutrition Criteria Met Start: 12/03/22 10:30 Freq: Status: Active Protocol: Document 12/03/22 10:30 LO (Rec: 12/03/22 10:30 [id number]) Nutrition Malnutrition Evidence of Malnutrition Exists Yes Malnutrition (severe): Chronic Evidenced By Suboptimal Energy Intake ( Severe),Weight Loss (Severe) Clinical Problem Chronic Disease or Condition Related Malnutrition Etiology severe related to esophageal cancer Signs/Symptoms as evidenced by <75% PO intake of estimated energy needs for 1 month and 20lbs (10%) weight loss in 1 month Status Active Problem Recommendation Dietitian Recommendations/Changes ADAT to Regular with texture/ consistency per MD to optimize oral intakes. Recommend 120mL Ensure Plus High Protein 4x with medpass as medically able. RD will follow for possible enteral nutrition needs. Lab / Micro Data Result Diagrams: 12/03/22 04:49 12/03/22 04:49 Labs: Laboratory Results - last 24 hr 12/02/22 12:03: Urine Color Yellow, Urine Clarity Clear, Urine pH 6.5, Ur Specific [place] 1.010, Urine Protein Negative, Urine Glucose (UA) Normal, Urine Ketones Negative, Urine Occult Blood Negative, Urine Nitrite Negative, Urine Bilirubin Negative, Urine Urobilinogen Normal, Ur Leukocyte Esterase Negative, Urine RBC 0 SEEN, Urine WBC 0 SEEN, Ur Squamous Epith Cells 0 SEEN, Urine Bacteria 0 SEEN, Urine Mucus 0 SEEN 12/03/22 04:49: Sodium 135 L, Potassium 4.1, Chloride 107, Carbon Dioxide 21.0, Anion Gap 7, BUN 16, Creatinine 0.80, Estim Creat Clear Calc 68.74, Est GFR (MDRD) Af Amer 118, Est GFR (MDRD) Non-Af 97, BUN/Creatinine Ratio 20.0, Glucose 85, Calcium 7.8 L, Magnesium 2.0 12/03/22 04:49: WBC 2.0 L, RBC 3.16 L, Hgb 10.2 L, Hct 30.4 L, MCV 96.2 H, MCH 32.3 H, MCHC 33.6, RDW Std Deviation 55.3 H, RDW Coeff of Terry 15.9 H, Plt Count 150, MPV 10.6, Immature Gran % (Auto) 1.000 H, Neut % (Auto) 69.7, Lymph % (Auto) 11.4 L, [place] % (Auto) 14.9 H, Eos % (Auto) 2.0, Baso % (Auto) 1.0, Absolute Neuts (auto) 1.4 L, Absolute Lymphs (auto) 0.23 L, Nucleated RBC % 0 Radiology Impression Abdomen/Pelvis CT 12/02/22 10:35 IMPRESSION: Cholelithiasis. Simple cyst lateral midpole right kidney 2.3 cm. Sigmoid diverticulosis. Moderate sized hiatal hernia. Enlarged prostate. Electronically Signed: Javed Salvador MD, CHACHA at 11:50 EST Reading Location ID and State: [facility] / [place] Tel , Service support , Assessment & Plan Assessment/Plan (1) Dysphagia: (2) Esophageal carcinoma: PLAN: Plan 82-year-old male who completed definitive radiation for stage III adenocarcinoma?. Some people develop difficulty swallowing, because the radiation can causes the muscles and mucosal lining of the mouth, throat, and esophagus to become stiff and deformed. Swallowing becomes effortful and painful. The inflammation and soreness usually last for?seven to 10 days after radiation therapy treatment to your chest or back has ended or two to three weeks after treatment. I do not think he needs upper endoscopy at this time now as he tolerated liquid and soft substances at the bedside. What I recommend is a one-to-one to 1 combination of viscous 2% lidocaine plus Maalox and/or solution every 4 hours for 5 days. Also recommend nystatin swish and swallow as he is at increased risk of Li esophagitis due to chemotherapy and radiation. Also recommend Protonix 40 mg p.o. twice daily as you can get a secondary acid induced injury. Charges/Coding Visit Charges Inpatient E&M: 12922 Subs Hosp L3
[2022-12-03] MEDS: NYSTATIN 500,000 UNIT/5 ML UDC 100000 UNIT PO ×3 (14:00→21:03)
[2022-12-03] MEDS: Ketorolac 15 MG/ML Vial IV (14:15)
[2022-12-03] MEDS: 0.9% Saline Lock 10 ML Syringe IV (14:16)
[2022-12-03 14:19] VITALS: BP 130/70; PULSE 85; RESP 18; TEMP 36.7; O2SAT 100
[2022-12-03 21:03] VITALS: BP 124/69; PULSE 74; RESP 16; TEMP 37.9; O2SAT 96
[2022-12-03] MEDS: Metoprolol Tartrate 25 MG Tablet PO (21:03)
[2022-12-03] MEDS: MELATONIN 3 MG TABLET PO (21:03)
[2022-12-04 02:37] VITALS: BP 103/63; PULSE 78; RESP 16; TEMP 37.7; O2SAT 95
[2022-12-04] MEDS: Ketorolac 15 MG/ML Vial IV (04:51)
[2022-12-04] MEDS: 0.9% Normal Saline 1,000 ML 125 ML IV (04:53)
[2022-12-04 05:43] LABS: Absolute Lymphocyte Count 0.23 X10^3/uL (0.83-4.51); Absolute Neutrophil Count 1.7 X10^3/uL (2.0-7.7); Basophil# 0.02 X10^3/uL; Basophil% 0.9 % (0-1); Eosinophil# 0.02 X10^3/uL; Eosinophils% 0.9 % (0-5); Hematocrit 29.3 % (40-54); Hemoglobin 10.4 g/dL (13.0-16.5); Lymphocyte # 0.23 X10^3/ul (0.83-4.51); Mean Corp Hgb Conc 35.5 g/dL (32-36); Mean Corpuscular Hgb 32.9 pg (27.0-32.0); Mean Corpuscular Volume 92.7 fL (80-94); Mean Platelet Vol. 10.2 fl (6.2-12.0); Monocyte# 0.34 X10^3/uL; Monocyte% 14.8 % (0-10); NRBC Flagged by Analyzer 0 % (0-5); Neutrophil # 1.67 X10^3/uL (2.7-7.7); Neutrophil % 72.5 % (47-70); POSITIVE DIFFERENTIAL YES; Platelet Count 145 K/mm3 (150-450); RBC Distribution Width SD 53.2 fl (35.1-43.9); Red Blood Count 3.16 M/mm3 (4.6-6.2); White Blood Count 2.3 K/mm3 (4.4-11.0)
[2022-12-04 06:10] LABS: Differential Indicated SCAN CRITERIA MET
[2022-12-04 06:32] LABS: Anion Gap 6 (5-15); BUN 12 mg/dL (7-18); BUN/Creat Ratio 16.1 RATIO (10-20); Calcium,Total 7.9 mg/dL (8.5-10.1); Chloride 107 mmol/L (98-107); Creatinine, Serum 0.75 mg/dL (0.70-1.30); EST Glomerular Filtration Rate 106 mL/min (>60); Est Glom Filt Rate - Afr Amer 128 mL/min (>60); Estimated Creatinine Clearance 54.99 ml/min; Glucose 95 mg/dL (74-106); Potassium 3.8 mmol/L (3.5-5.1); Sodium Level 134 mmol/L (136-145)
[2022-12-04 06:45] LABS: Differential Comment SCANNED
[2022-12-04 08:33] VITALS: BP 122/76; PULSE 80; RESP 18; TEMP 36.6; O2SAT 97
[2022-12-04 08:35] VITALS: PULSE 80
[2022-12-04] MEDS: Metoprolol Tartrate 25 MG Tablet PO (08:35)
--- NOTE | 2022-12-04 09:45 | CASEMGMT ---
MJ TURCIOS Assessment: Face to Face with pt for initial transition planning/care coordination assessment. RN TAM introduced self and role at [facility], pt voices understanding and consents to assessment. Pt is A/O x4 and answers all questions appropriately at this time. Pt sitting up in chair in no distress. Care providers, pharmacy, and demographics verified/updated. Admitting Dx: dysphagia PCP:Allie Specialists:wilfredo Smith Preferred [facility] Insurance: [facility] Prescription Benefit: yes LNOK: Marta Gill, ; Kenneth Gill, son Living Arrangements: Pt lives with in a two story home with 2 steps to enter. Pt reports he is I in ADL's and denies concerns at home. Transportation: Pt drives self and denies concerns with transportation. DME/HHC/SNF: Pt has a cane and walker but does not use. Pt has a shower chair as well. Pt denies hx of HHC or SNF stays. Pt states no concerns with going home at time of dc. Pt states no further concerns/needs. CM to follow. Advised pt to ask CM if any further question/concerns/needs arise, voices understanding. Pt Goal: Home Plan: Home
[2022-12-04] MEDS: NYSTATIN 500,000 UNIT/5 ML UDC 100000 UNIT PO (10:37)
[2022-12-04] MEDS: 0.9% Saline Lock 10 ML Syringe IV (13:45)
[2022-12-04] MEDS: HYDROmorphone Inj 0.2 MG/ML SYRINGE IV (13:45)
--- NOTE | 2022-12-04 14:00 | DCINST_ITS ---
Discharge Instructions Diet Discharge Diet: No restrictions Activity Discharge Activity: Return to Normal Activity Weight Bearing Status: Full weight bearing Follow Up Care Test Results: Test results from this visit will be discussed in further detail at your follow- up appointment, if applicable. Discharge Plan Admission Admit Date/Time: 12/02/22 13:53 Primary Reason for Your Visit: esophagitis Attending Provider: Javed Howard Primary Care Provider: Michael Kelley Consulting Providers: Noman Alicia ; Marifer Schrader ; Johanna Davis ; Lanre Salmeron ; Carlos Smith ; Tomasz Joyce Discharge Orders/Prescriptions Prescriptions: New nystatin 100,000 unit/mL Suspension 5 ml PO 4X/DAY Qty: 100 0RF hydromorphone [Dilaudid] 2 mg tablet 2 mg PO Q6H PRN (Reason: pain) 5 Days Qty: 15 0RF Rx Instructions: !/2-1 every 6 hours as needed for pain alum-mag hydroxide-simeth [Mag-Al Plus Extra Strength] 400-400-40 mg/5 mL Suspension 5 ml PO Q4 Qty: 150 0RF Continued atorvastatin 40 MG tablet 40 mg PO QHS aspirin 81 MG tablet 81 mg PO DAILY tamsulosin 0.4 MG capsule 0.4 mg PO QHS nitroglycerin 0.4 MG tablet 0.4 mg sublingual Q5M PRN (Reason: Chest Pain) Metamucil (with sugar) 3.4 GM powder in packet 3.4 g PO DAILY omeprazole 40 mg capsule,delayed release(DR/EC) 40 mg PO BID promethazine 25 mg tablet 25 mg PO Q6H PRN (Reason: NAUSEA/VOMITING) metoprolol tartrate 50 mg tablet 25 mg PO BID diphenhydramine-acetaminophen [Tylenol PM Extra Strength] 25-500 mg Tablet 3 tab PO QHS fenofibrate 54 mg tablet 216 mg PO DAILY Aquaphor Ointment 1 applic TOPICAL TID Discontinued sucralfate 1 gram tablet 1 g PO 4X/DAY potassium chloride 20 mEq packet 20 meq PO DAILY Referrals / Follow Up: Carlos Smith DO [Med Staff - Active Staff] - See Referral Note (as scheduled) Michael Kelley MD [Primary Care Provider] - Disposition Disposition (needs filled in before D/C Order can be placed): Home, Self Care
[2022-12-04 14:11] LABS: Pathologist Review Reviewed
[2022-12-04 14:26] LABS: Pathologist Review Reviewed
[2022-12-04 14:28] LABS: Pathologist Review Reviewed
--- NOTE | 2022-12-04 14:38 | PCM.DC.SUM ---
Providers Date of Admission: 12/02/22 Date of Discharge: 12/04/22 Primary Care Physician: Dr. Michael Kelley MD Consultations 12/02/22 15:20 Consult: Gastroenterology Routine Consulting Provider: Desiree Gastroenterology Reason for Consult: dysphagia EMERGENT Consult: No Notified: Yes Date Notified: 12/02/22 Time Notified: 13:58 Method of Notification: Verbal Consult: Oncology/Hematology Routine Consulting Provider: [facility] Hem/Onc Kiel Reason for Consult: esophageal cancer EMERGENT Consult: No Notified: Yes Date Notified: 12/02/22 Time Notified: 15:13 Method of Notification: Verbal Reason For Visit: DYSPHAGIA Diagnosis Discharge Diagnosis (1) Dysphagia: Status: Acute Code(s): R13.10 - Dysphagia, unspecified (2) Hypokalemia: Status: Acute Code(s): E87.6 - Hypokalemia (3) Neutropenia: Status: Acute Code(s): D70.9 - Neutropenia, unspecified Plan 1. 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 intake of estimated energy needs for 1 month and 20 pound weight loss in 1 month-Ensure Plus high-protein 4 times a day with med Pass was given to the patient Medications at Discharge Home Medications aspirin 81 mg tablet,delayed release 81 mg PO DAILY HEART HEALTH 10/17/17 atorvastatin 40 mg tablet 40 mg PO QHS CHOLESTEROL 10/17/17 nitroglycerin 0.4 mg sublingual tablet 0.4 mg sublingual Q5M PRN Chest Pain 10/17/17 tamsulosin 0.4 mg capsule 0.4 mg PO QHS PROSTATE 10/17/17 psyllium husk (with sugar) 3.4 gram oral powder packet (Metamucil (with sugar)) 3.4 g PO DAILY CONSTIPATION 09/05/18 diphenhydramine 25 mg-acetaminophen 500 mg tablet (Tylenol PM Extra Strength) 3 tab PO QHS SLEEP 12/02/22 fenofibrate 54 mg tablet 216 mg PO DAILY CHOLESTEROL 12/02/22 metoprolol tartrate 50 mg tablet 25 mg PO BID BLOOD PRESSURE 12/02/22 mineral oil-hydrophil petrolat topical ointment (Aquaphor topical ointment) 1 applic topical TID skin 12/02/22 omeprazole 40 mg capsule,delayed release 40 mg PO BID ACID REFLUX 12/02/22 promethazine 25 mg tablet 25 mg PO Q6H PRN NAUSEA/VOMITING 12/02/22 aluminum-mag hydroxide-simethicone 400 mg-400 mg-40 mg/5 mL oral susp (Mag-Al Plus Extra Strength) 5 ml PO Q4 #150 mL 12/04/22 hydromorphone 2 mg tablet (Dilaudid) 2 mg PO Q6H PRN pain 5 days #15 tabs 12/04/22 nystatin 100,000 unit/mL oral suspension 5 ml PO 4X/DAY #100 mL 12/04/22 Hospital Course Operations None Procedures None Summary of Care Provided Minutes Spent on Discharge: 31 Hospital Course: This 82-year-old white male was seen in the emergency room at [facility] with complaints of progressive dysphagia, patient has a history of adenocarcinoma of the esophagus and has been undergoing radiation treatment. Patient was having trouble swallowing and had vomited up medications. Lab work in the emergency room showed a low potassium at 3.2, they try giving him oral intake in the emergency room but he had emesis. Patient was admitted to [place] [address], he was seen in consultation by gastroenterology and oncology as well as speech therapy. It was recommended that he use viscous lidocaine with Maalox 5 cc every 4 hours, endoscopy was not recommended, patient was able to begin eating again in the hospital. On 12/04/2022, patient was seen and examined: On examination he appeared in good health and spirits. Vital signs as documented. Skin warm and dry and without overt rashes. Neck without JVD, neck was supple, trachea midline, thyroid was normal. Lungs clear bilaterally, normal air movement was noted. Heart exam notable for regular rhythm, normal sounds and absence of murmurs, rubs or gallops. Abdomen unremarkable and without evidence of organomegaly, masses, or abdominal aortic enlargement. Bowel sounds are present, abdomen is not distended. Extremities nonedematous, no cyanosis was noted, no clubbing was noted. Neuro: Cranial nerves II through XII are grossly intact, no focal motor deficits were noted, sensation to light touch and pinprick intact, motor exam 5/5 throughout. Psych: Patient is alert and oriented x3, he does not appear anxious or depressed, he does not appear agitated. Patient appears stable for discharge home on 12/04/2022 Medical Records Data Medical Nutrition Assessment Dietitian: Malnutrition Criteria Met Start: 12/03/22 10:30 Freq: Status: Active Protocol: Document 12/03/22 10:30 LO (Rec: 12/03/22 10:30 LO [id number]) Nutrition Malnutrition Evidence of Malnutrition Exists Yes Malnutrition (severe): Chronic Evidenced By Suboptimal Energy Intake ( Severe),Weight Loss (Severe) Clinical Problem Chronic Disease or Condition Related Malnutrition Etiology severe related to esophageal cancer Signs/Symptoms as evidenced by <75% PO intake of estimated energy needs for 1 month and 20lbs (10%) weight loss in 1 month Status Active Problem Recommendation Dietitian Recommendations/Changes ADAT to Regular with texture/ consistency per MD to optimize oral intakes. Recommend 120mL Ensure Plus High Protein 4x with medpass as medically able. RD will follow for possible enteral nutrition needs. Weight / BMI Weight Weight: 75.523 kg Body Mass Index (BMI) 24.5 ABG / Lab / Microbiology Data Result Diagrams: 12/04/22 04:45 12/04/22 04:45 Laboratory: Laboratory Results - last 24 hr 12/02/22 10:09: Diff Path Review Reviewed 12/03/22 04:49: Diff Path Review Reviewed 12/04/22 04:45: WBC 2.3 L, RBC 3.16 L, Hgb 10.4 L, Hct 29.3 L, MCV 92.7, MCH 32.9 H, MCHC 35.5 D, RDW Std Deviation 53.2 H, RDW Coeff of Terry 16.0 H, Plt Count 145 L, MPV 10.2, Immature Gran % (Auto) 0.900, Neut % (Auto) 72.5 H, Lymph % (Auto) 10.0 L, [place] % (Auto) 14.8 H, Eos % (Auto) 0.9, Baso % (Auto) 0.9, Absolute Neuts (auto) 1.7 L, Absolute Lymphs (auto) 0.23 L, Nucleated RBC % 0, Differential Comment SCANNED, Diff Path Review Reviewed 12/04/22 04:45: Sodium 134 L, Potassium 3.8, Chloride 107, Carbon Dioxide 21.0, Anion Gap 6, BUN 12, Creatinine 0.75, Estim Creat Clear Calc 54.99, Est GFR (MDRD) Af Amer 128, Est GFR (MDRD) Non-Af 106, BUN/Creatinine Ratio 16.1, Glucose 95, Calcium 7.9 L D/C Instructions Discharge Diet: No restrictions Weight Bearing Status: Full weight bearing Meaningful Use Info Meaningful Use Diagnoses (Choose all that apply): None applicable Discharge Plan Admission Admit Date/Time: 12/02/22 13:53 Primary Reason for Your Visit: esophagitis Attending Provider: Javed Howard Primary Care Provider: Michael Kelley Consulting Providers: Noman Alicia ; Marifer Schrader ; Johanna Davis ; Lanre Salmeron ; Carlos Smith ; Tomasz Joyce Discharge Orders/Prescriptions Prescriptions: New nystatin 100,000 unit/mL Suspension 5 ml PO 4X/DAY Qty: 100 0RF hydromorphone [Dilaudid] 2 mg tablet 2 mg PO Q6H PRN (Reason: pain) 5 Days Qty: 15 0RF Rx Instructions: !/2-1 every 6 hours as needed for pain alum-mag hydroxide-simeth [Mag-Al Plus Extra Strength] 400-400-40 mg/5 mL Suspension 5 ml PO Q4 Qty: 150 0RF Continued atorvastatin 40 MG tablet 40 mg PO QHS aspirin 81 MG tablet 81 mg PO DAILY tamsulosin 0.4 MG capsule 0.4 mg PO QHS nitroglycerin 0.4 MG tablet 0.4 mg sublingual Q5M PRN (Reason: Chest Pain) Metamucil (with sugar) 3.4 GM powder in packet 3.4 g PO DAILY omeprazole 40 mg capsule,delayed release(DR/EC) 40 mg PO BID promethazine 25 mg tablet 25 mg PO Q6H PRN (Reason: NAUSEA/VOMITING) metoprolol tartrate 50 mg tablet 25 mg PO BID diphenhydramine-acetaminophen [Tylenol PM Extra Strength] 25-500 mg Tablet 3 tab PO QHS fenofibrate 54 mg tablet 216 mg PO DAILY Aquaphor Ointment 1 applic TOPICAL TID Discontinued sucralfate 1 gram tablet 1 g PO 4X/DAY potassium chloride 20 mEq packet 20 meq PO DAILY Referrals / Follow Up: Carlos Smith DO [Med Staff - Active Staff] - See Referral Note (as scheduled) Michael Kelley MD [Primary Care Provider] - Disposition Disposition (needs filled in before D/C Order can be placed): Home, Self Care Charges/Coding Visit Charges Inpatient E&M: 88250 Disch Hosp >30min
[2022-12-04 15:08] VITALS: BP 125/65; PULSE 73; RESP 18; TEMP 36.9; O2SAT 98
--- NOTE | 2022-12-04 15:49 | CHAPLAIN ---
Type of Pastoral Visit _x__ Initial Visit ___ Follow-up Visit ___ On-call Visit ___ General Patient Visit ___ Spiritual Assessment ___ Family Conference ___ Bereavement ___ Rapid Response ___ Code Blue ___ Other (describe below) Pastoral Care Referral From _x__ Patient _x__ Family ___ Nurse ___ Physician ___ Tank Maker Wood ___ Dinkey Operator Slag ___ Other (describe below) Sacrament/Intervention _x__ Active listening ___ Anointing ___ Nondenominational ___ Bereavement ___ Communion _x__ Ashley exploration ___ _x__ Life review _x__ Prayer ___ Reconciliation ___ Sacrament of Sick _x__ Supportive presence ___ Wedding ___ Other (describe below) Pastoral Comments patient and spouse together in the room and they share some life review, current health concerns, and their ashley in God; both request for prayer support; both interact and talk about their life and their hopes for a future; pt has good druze support and family
== END 2022-12-04 16:35 | disposition home or self-care (01) | DRG 391 ==
LOC: ED 14:01 → MS3 14:48
PROVIDERS: Internal Medicine Hematology & Oncology; Emergency Provider Emergency Medicine; PCP Family Medicine; Visit Provider Internal Medicine
DX: K20.80 Other esophagitis without bleeding (principal); E43 Unspecified severe protein-calorie malnutrition; C15.5 Malignant neoplasm of lower third of esophagus; T66.XXXA Radiation sickness, unspecified, initial encounter; E86.0 Dehydration; E87.6 Hypokalemia; I25.10 Atherosclerotic heart disease of native coronary artery without angina pectoris; R13.12 Dysphagia, oropharyngeal phase; Y84.2 Radiological procedure and radiotherapy as the cause of abnormal reaction of the patient, or of later complication, without mention of misadventure at the time of the procedure; Z68.24 Body mass index [BMI] 24.0-24.9, adult; Z79.82 Long term (current) use of aspirin; Z79.899 Other long term (current) drug therapy; Z92.21 Personal history of antineoplastic chemotherapy; Z87.891 Personal history of nicotine dependence; Z95.5 Presence of coronary angioplasty implant and graft
CPT/HCPCS: 36415; 71045; 74176; 80048; 80053; 81001; 83690; 83735; 84484; 85025; 93005; 97802; 99285; J7030; A4216